=== PATIENT | male | born 1995 | race Caucasian/White ===

== ENCOUNTER 2020-04-25 19:43 | Emergency (ER) | payer OTHER ==
[~2020-04-25] VITALS: Ht 185.4 cm; Wt 90.7 kg
[2020-04-25] MEDS ORDERED: ZIPSOR25 MG (20:21)
[2020-04-25] MEDS ORDERED: ASPIR 8181 MG (20:21)
[2020-04-26] MEDS ORDERED: DICLOFENAC SODI50 MG PO (03:06)
[2020-04-26] MEDS ORDERED: PEPCID AC20 MG PO (03:06)
[2020-04-26] MEDS ORDERED: ORPHENADRINE C100 MG PO (03:06)
== END 2020-04-26 02:59 | disposition home or self-care (01) ==
LOC: ER 19:43 → EDBD 20:22 → ER 20:22
DX: M62.830 Muscle spasm of back (principal); Q87.40 Marfan syndrome, unspecified; F06.4 Anxiety disorder due to known physiological condition; F41.0 Panic disorder [episodic paroxysmal anxiety]